=== PATIENT | female | born 1935 | race Caucasian/White ===

== ENCOUNTER 2020-03-17 21:13 | Inpatient (IN) ==
--- NOTE | 2020-03-17 21:31 | Emergency Department Note ---
Abdominal Pain HPI General Source: EMS Mode of arrival: EMS Limitations: other (Nonverbal. Not able to follow commands.) History of Present Illness HPI Narrative: 84-year-old nonverbal dementia patient from [facility] nursing home facility presents with constipation and reports of no bowel movement for 11 days. She has had poor appetite with last meal 2 days ago. Unclear if she has been taking liquids. COVID + on 03/03/20. COVID screen this week reported as negative. DNR/DNI. Related Data Previous Rx's Medication Instructions Recorded Customized wheelchair #1 ea 02/14/20 lorazepam 0.5 mg PO Q4HP PRN #12 tab 03/19/20 morphine 5 mg PO Q4H #20 ml 03/19/20 ondansetron HCl 4 mg PO Q6H PRN #50 ml 03/19/20 scopolamine base 1 patch TRANSDERMA Q3D PRN #1 each 03/19/20 Allergies Allergy/AdvReac Type Severity Reaction Status Date / Time No Known Drug Allergies Allergy Verified 03/18/20 07:08 Review of Systems ROS ROS Narrative: Narrative: PFSH Narrative Patient History Narrative: Narrative: Medical/Surgical/Family History All Active Problems Acute hypernatremia (Acute) Acute dehydration (Acute) COVID-19 virus detected (Acute) Contracture of joint of hand (Chronic) Thrush (Acute) Encounter for long-term (current) use of other high-risk medications (Acute) Weight loss (Acute) Insomnia (Chronic) Dementia (Chronic) [place] or callus (Chronic) Incontinence (Chronic) Thoracic back pain (Acute) Anemia (Chronic) Hyperlipidemia (Chronic) Hallucinations (Acute) Stroke (Chronic) Elevated parathyroid hormone (Acute) Encounter for long-term (current) use of other high-risk medications (Chronic) Sjogrens syndrome (Acute) Sedimentation rate elevation (Chronic) Rheumatoid arthritis (Acute) Osteoporosis (Acute) Osteoarthrosis (Chronic) 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 use of drug (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 pylori and she was treated. Colonoscopy = polyps/internal hemorrhoids. Small bowel PillCam did not reach stomach, Active bleeding in the prox mid jejunum. Push enteroscopy did not show bleeding Suspect bleeding related to aspirin erosions in the small bowel Aspirin on hold Anxiety disorder (Chronic) 03/28/17 stable on fluoxetine 40 mg 12/04/2018 stable on fluoxetine 40 mg, follow-up 3 months 04/02/19 PHQ 9=8. Continue fluoxetine and follow-up in 2 months 02/19/20 decrease fluoxetine 30mg for 2 weeks then 20mg, f/u 3 m Bunion (Resolved) 11/18/16 improved after seeing podiatry Callus of foot (Resolved) 11/18/16 improved after seeing podiatry Carpal tunnel syndrome (Chronic) Confusion (Resolved) 09/06/16 Mini-Mental exam . Plan to check lab work today and brain MRI. ? related to recent stress of older sister passing. Fluoxetine increased to 40mg. Home health ordered. 05/09/17 continue with in-home care to help remember medication, help with daily activities and meals, encouraged sister to contact in home care to arrange for more hours. I offered to help but she declined 06/27/17 deteriorated, request more hours from in-home care until she can be placed at [facility] Depression (Chronic 09/10/14) 04/02/2019 PHQ 9= 8. Continue fluoxetine and follow-up in 2 months 02/19/20 decrease fluoxetine 30mg for 2 weeks then 20mg, continue Remeron 15 at bedtime, f/u 3 months Dizziness (Resolved) orthostatic blood pressure stable, EKG normal. labs stable. Discussed differential with patient, encouraged her to increase fluids, sports drinks, change position slowly. 04/05/16 orthostatic stable, continue to encourage her to increase fluids and change position slowly, follow-up 2 months, sooner if needed for worsening symptoms 06/13/16 stable, reviewed the above with patient again 09/06/16 encouraged her to change position slowly, increase/maintaining hydration, orthostatics stable, check labs today, set up home health, add Flonase, follow-up one month 09/14/16 she is orthostatic today, hold on adding amlodipine, encouraged her to increase hydration, change her position slowly 11/18/16 stable, continue increased hydration and changing positions slowly Elevated parathyroid hormone (Acute) Encounter for long-term (current) use of other high-risk medications (Chronic) Encounter for long-term (current) use of other high-risk medications (Acute) Encounter for long-term current use of other high-risk medications (Resolved) Hallucinations (Acute) 06/27/17 new. stroke vs demenita vs infection vs metabolic abnormality, discussed differential with patient, obtain MRI, lab work and follow-up in one month, keep appointment with Dr. To 08/09/17 no acute findings on MRI of brain. Hallucinations related to meek ntia 12/04/2018 occurring as part of her dementia Hyperglycemia (Chronic) 02/19/19 A1C 6.2 discussed results of lab work, continue to monitor and recheck again in August 2019 Hyperlipidemia (Chronic) 02/19/2020 taking atorvastatin 10, plan to check lipids in early May Hypertension, essential (Chronic) 05/09/17 stable on losartan 100 mg and propanolol 20 mg twice a day. 08/29/18 deteriorated. Add diltiazem 60 twice daily, continue losartan 100 and metoprolol ER 25, check CMP in 1 week and record blood pressure daily, follow-up 1 month 02/19/2020 stable on diltiazem 60 BID, losartan 100, metoprolol ER 25, continue Incontinence (Chronic) 03/21/18 discussed strategies for improvement, [place] exercises, emptying bladder at least every 2 hours, discussed bladder irritants, discussed medications and surgery. 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 Abnormality consistent with small vessel ischemic change. Echocardiogram normal, started on Plavix 75 for one month, aspirin, Lipitor 40 mg. Recommendations to obtain CT head and neck angio. 09/13/[address] angio not performed yet, ordered today, scheduled 09/19/16. Continue Plavix, aspirin, Lipitor 10/07/16 discussed results of head/neck CT angio, refer to Dr. To, continue Plavix, aspirin and Lipitor 03/28/17 stable on Plavix and Lipitor follow-up with Dr. To as directed 06/20/2019 recent admission to [facility], encouraged to continue aspirin and Plavix, continue physical therapy left-sided weakness and soft surgical diet TIA (transient ischemic attack) (Chronic 09/10/12) URI (upper respiratory infection) (Resolved) Surgical History History of cataract surgery (Chronic) 06/2011;07/2011 X2 History of colonoscopy (Chronic) 2008 Dr. Hyde-Polyps, no cancer Family History Mother Amyotrophic lateral sclerosis Sister Rheumatoid arthritis Malignant neoplasm of breast Father Family history of throat cancer Unknown Osteoporosis Acute myocardial infarction siblings Family history of malignant neoplasm siblings Social History Smoking Status: Never smoker Alcohol Intake Frequency: does not drink Substance Use: does not use Exam Narrative Narrative: Narrative: General Limitations: other (Nonverbal. Not able to follow commands.) General appearance: Present cachectic, grimacing (With abdominal palpation exam), in no apparent distress and nontoxic Head Head: Present normocephalic and normal inspection Eye Eye: Present PERRL, EOMI and other (Pupils pinpoint) ENT ENT: Present mucous membranes dry Adbominal Abdominal: Present soft, tenderness (Grimaces with palpation) and normal bowel sounds Extremities Extremities: Present normal capillary refill and other (Flexion contractures of bilateral upper extremities and lower extremities) Neurological Neurological: Present CN II-XII intact Psychiatric Psychiatric: Present other (Nonverbal, not following commands) Skin Skin: Present warm (WNL), dry and normal color Course Course Course Narrative: Patient is seen for constipation and anorexia. Was COVID positive on 03/03/2020. Reevaluation(s) Reevaluation #1: Patient seen and examined. Initial work-up includes KUB, CBC with manual differential and Chem-8 panel will start an IV and give her normal saline 500 mL bolus. Patient is signed out to Dr. Anthony at change of shift. He will assume care. Vital Signs Vital signs: Vital Signs Temperature 98.0 F 03/17/20 21:15 Pulse Rate 96 H 03/17/20 21:15 Respiratory Rate 17 03/17/20 21:15 Blood Pressure 147/102 03/17/20 21:15 Pulse Oximetry (%) 92 03/17/20 21:15 Temperature 97.8 F 03/19/20 07:03 Pulse Rate 92 H 03/19/20 07:03 Respiratory Rate 14 03/19/20 07:03 Blood Pressure 113/81 03/19/20 07:03 Pulse Oximetry (%) 94 03/19/20 07:03 MDM MDM Narrative Medical decision making narrative: Narrative: Lab Data Result diagrams: 03/17/20 22:00 03/18/20 15:00 Labs: Lab Results 03/17/20 03/17/20 03/17/20 Range/Units 21:45 22:00 22:00 WBC 9.4 (4.50-11.00) K/mcL RBC 5.29 (3.59-5.38) M/mcL Hgb 16.0 H (11.2-15.7) g/dL Hct 49.7 H (34.1-44.9) % POC Hct 47.0 (36.0-48.0) % MCV 94.0 (80.0-100.0) fL MCH 30.2 (26.0-34.0) pg MCHC 32.2 (31.0-36.0) g/dL RDW 13.5 (11.5-14.5) % Plt Count 310 (140-440) K/mcL MPV 9.8 (7.4-10.4) fL Total Counted 100 Seg Neutrophils % 69 (38-78) % Band Neutrophils % Not Reportable Lymphocytes % 22 (15-49) % Monocytes % (Manual) 9 (1-12) % Platelet Estimate Normal (NORMAL) RBC Morphology Normal (NORMAL) POC Sodium 156 H (133-145) mmol/L Sodium 153 H (133-145) mmol/L POC Potassium 3.7 (3.3-5.1) mmol/L Potassium 3.9 (3.3-5.1) mmol/L POC Chloride 124 H (96-108) mmol/L Chloride 119 H (96-108) mmol/L Carbon Dioxide 17 L (22-30) mmol/L POC Total CO2 18 L (22-30) mmol/L Anion Gap 17.0 H (8-16) POC BUN 56 H (8-23) mg/dl BUN 64 H (8-23) mg/dl Creatinine 1.4 H (0.6-1.1) mg/dl POC Creatinine 1.4 H (0.6-1.1) mg/dl GFR Calculation 34 Glucose 154 H (70-105) mg/dL POC Glucose 151 H (70-105) mg/dL Calcium 9.3 (8.6-10.4) mg/dl POC WB Ioniz Calcium 1.16 (1.16-1.32) mmol/L Discharge Plan Patient/Caregiver Discharge Instructions Pt seen by LEGAL ADMINISTRATIVE ASSISTANT/PA only: No Clinical Impression: Acute hypernatremia, Acute dehydration, COVID-19 virus detected Dementia Qualifiers: Dementia type: unspecified type Dementia behavioral disturbance: without behavioral disturbance Qualified Code(s): F03.90 - Unspecified dementia without behavioral disturbance Patient Disposition: Xfer As Inpt ([facility]) Condition: Serious Discharge Date/Time: 03/18/20 00:47
[2020-03-17] MEDS ORDERED: 0.9 % SODIUM CHLORIDE 1,000 ML IV SCH ×2 (21:45→23:45)
[2020-03-17 22:08] LABS: POC Blood Urea Nitrogen 56 mg/dl (8-23); POC CO2 18 mmol/L (22-30); POC Calcium, Ionized 1.16 mmol/L (1.16-1.32); POC Chloride 124 mmol/L (96-108); POC Creatinine 1.4 mg/dl (0.6-1.1); POC Glucose, Random 151 mg/dL (70-105); POC Potassium 3.7 mmol/L (3.3-5.1); POC Sodium 156 mmol/L (133-145)
[2020-03-17] MEDS ORDERED: 0.9 % SODIUM CHLORIDE 1,000 ML IV ONE (22:22)
--- NOTE | 2020-03-17 22:22 | Emergency Department Note ---
Abdominal Pain HPI General Chief Complaint: Constipation Stated Complaint: constipation Time Seen by Provider: 03/17/20 21:26 Source: EMS Mode of arrival: EMS Limitations: other (Nonverbal. Not able to follow commands.) History of Present Illness HPI Narrative: 84-year-old female patient with dementia from [facility] comes in for constipation x11 days. She is nonverbal so I am unable to get any history or review of systems. Patient was initially seen by physicians perioperative assistant Kiah Palacios. Please see her note. I reviewed that note and agree with her evaluation management and documentation. I also reviewed paperwork from the nursing facility and discussed with my charge nurse who talked directly with the nursing staff there. Apparently she was tested for COVID and was positive on the (2 weeks ago) but subsequent testing was negative per nursing report Related Data Home Medications Medication Instructions Recorded Confirmed aspirin 81 mg chewable tablet 81 mg PO DAILY 04/17/18 03/17/20 ascorbic acid (vitamin C) 500 mg 500 mg PO QDAY 05/02/18 03/17/20 tablet ferrous gluconate 325 mg (37 mg 325 mg PO QDAY tab 05/02/18 03/17/20 iron) tablet acetaminophen 325 mg capsule 650 mg PO Q4H PRN 12/04/18 03/17/20 magnesium hydroxide 400 mg/5 mL See Rx Instructions PO QDAY PRN 12/04/18 03/17/20 oral suspension clopidogrel 75 mg tablet See Rx Instructions .ROUTE 04/02/19 03/17/20 .COMPLEX tablet diltiazem HCl 60 mg 60 mg PO BID cap 04/02/19 03/17/20 capsule,extended release 12 hr sodium phosphates 19 gram-7 118 ml ID ONCE 02/19/20 03/17/20 gram/118 mL enema bisacodyl [Dulcolax (bisacodyl)] 10 mg ID PRN PRN 03/17/20 03/17/20 cholecalciferol (vitamin D3) 5,000 unit PO DAILY 03/17/20 03/17/20 docusate sodium [Colace] 100 mg PO QDAY 03/17/20 03/17/20 fluoxetine 20 mg PO QDAY 03/17/20 03/17/20 Previous Rx's Medication Instructions Recorded losartan 100 mg tablet 100 mg PO QDAY #90 tab 12/22/17 atorvastatin 10 mg tablet 10 mg PO QDAY #30 tab 08/31/18 folic acid 1 mg tablet 1 mg PO QDAY #90 tab 07/24/19 metoprolol succinate 25 mg 25 mg PO QDAY #30 tab 08/08/19 tablet,extended release 24 hr mirtazapine 15 mg tablet 15 mg PO QHS #30 tab 10/15/19 methotrexate sodium 2.5 mg tablet 10 mg PO QWEEK #16 tab 11/27/19 denosumab 60 mg/mL subcutaneous 60 mg SUBCUT [id number] #1 ml 01/01/20 syringe Customized wheelchair #1 ea 02/14/20 Allergies Allergy/AdvReac Type Severity Reaction Status Date / Time No Known Drug Allergies Allergy Verified 02/19/20 10:10 Review of Systems ROS ROS Narrative: Narrative: Limitations: ROS unobtainable due to patients medical condition PFS Narrative Patient History Narrative: Narrative: Medical/Surgical/Family History All Active Problems Acute hypernatremia (Acute) Acute dehydration (Acute) COVID-19 virus detected (Acute) Contracture of joint of hand (Chronic) Thrush (Acute) Encounter for long-term (current) use of other high-risk medications (Acute) Weight loss (Acute) Insomnia (Chronic) Dementia (Chronic) [place] or callus (Chronic) Incontinence (Chronic) Thoracic back pain (Acute) Anemia (Chronic) Hyperlipidemia (Chronic) Hallucinations (Acute) Stroke (Chronic) Elevated parathyroid hormone (Acute) Encounter for long-term (current) use of other high-risk medications (Chronic) Sjogrens syndrome (Acute) Sedimentation rate elevation (Chronic) Rheumatoid arthritis (Acute) Osteoporosis (Acute) Osteoarthrosis (Chronic) 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 pylori and she was treated. Colonoscopy = polyps/internal hemorrhoids. Small bowel PillCam did not reach stomach, Active bleeding in the prox mid jejunum. Push enteroscopy did not show bleeding Suspect bleeding related to aspirin erosions in the small bowel Aspirin on hold Anxiety disorder (Chronic) 03/28/17 stable on fluoxetine 40 mg 12/04/2018 stable on fluoxetine 40 mg, follow-up 3 months 04/02/19 PHQ 9=8. Continue fluoxetine and follow-up in 2 months 02/19/20 decrease fluoxetine 30mg for 2 weeks then 20mg, f/u 3 m Bunion (Resolved) 11/18/16 improved after seeing podiatry Callus of foot (Resolved) 11/18/16 improved after seeing podiatry Carpal tunnel syndrome (Chronic) Confusion (Resolved) 09/06/16 Mini-Mental exam 27/30. Plan to check lab work today and brain MRI. ? related to recent stress of older sister passing. Fluoxetine increased to 40mg. Home health ordered. 05/09/17 continue with in-home care to help remember medication, help with daily activities and meals, encouraged sister to contact in home care to arrange for more hours. I offered to help but she declined 06/27/17 deteriorated, request more hours from in-home care until she can be placed at [place] Depression (Chronic 09/10/14) 04/02/2019 PHQ 9= 8. Continue fluoxetine and follow-up in 2 months 02/19/20 decrease fluoxetine 30mg for 2 weeks then 20mg, continue Remeron 15 at bedtime, f/u 3 months Dizziness (Resolved) orthostatic blood pressure stable, EKG normal. labs stable. Discussed differential with patient, encouraged her to increase fluids, sports drinks, change position slowly. 04/05/16 orthostatic stable, continue to encourage her to increase fluids and change position slowly, follow-up 2 months, sooner if needed for worsening symptoms 06/13/16 stable, reviewed the above with patient again 09/06/16 encouraged her to change position slowly, increase/maintaining hydration, orthostatics stable, check labs today, set up home health, add Jony nase, follow-up one month 09/14/16 she is orthostatic today, hold on adding amlodipine, encouraged her to increase hydration, change her position slowly 11/18/16 stable, continue increased hydration and changing positions slowly Elevated parathyroid hormone (Acute) Encounter for long-term (current) use of other high-risk medications (Chronic) Encounter for long-term (current) use of other high-risk medications (Acute) Encounter for long-term current use of other high-risk medications (Resolved) Hallucinations (Acute) 06/27/17 new. stroke vs demenita vs infection vs metabolic abnormality, discuss ed differential with patient, obtain MRI, lab work and follow-up in one month, keep appointment with Dr. To 08/09/17 no acute findings on MRI of brain. Hallucinations related to dementia 12/04/2018 occurring as part of her dementia Hyperglycemia (Chronic) 02/19/19 A1C 6.2 discussed results of lab work, continue to monitor and recheck again in August 2019 Hyperlipidemia (Chronic) 02/19/2020 taking atorvastatin 10, plan to check lipids in early May Hypertension, essential (Chronic) 05/09/17 stable on losartan 100 mg and propanolol 20 mg twice a day. 08/29/18 deteriorated. Add diltiazem 60 twice daily, continue losartan 100 and metoprolol ER 25, check CMP in 1 week and record blood pressure daily, follow-up 1 month 02/19/2020 stable on diltiazem 60 BID, losartan 100, metoprolol ER 25, continue Incontinence (Chronic) 03/21/18 discussed strategies for improvement, [place] exercises, emptying bladder at least every 2 hours, discussed bladder irritants, discussed medications and surgery. 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 Abnormality consistent with small vessel ischemic change. Echocardiogram normal, started on Plavix 75 for one month, aspirin, Lipitor 40 mg. Recommendations to obtain CT head and neck angio. 09/13/[address] angio not performed yet, ordered today, scheduled 09/19/16. Continue Plavix, aspirin, Lipitor 10/07/16 discussed results of head/neck CT angio, refer to Dr. To, continue Plavix, aspirin and Lipitor 03/28/17 stable on Plavix and Lipitor follow-up with Dr. To as directed 06/20/2019 recent admission to [facility], encouraged to continue aspirin and Plavix, continue physical therapy left-sided weakness and soft surgical diet TIA (transient ischemic attack) (Chronic 09/10/12) URI (upper respiratory infection) (Resolved) Surgical History History of cataract surgery (Chronic) 06/2011;07/2011 X2 History of colonoscopy (Chronic) 2008 Dr. Hyde-Polyps, no cancer Family History Mother Amyotrophic lateral sclerosis Sister Rheumatoid arthritis Malignant neoplasm of breast Father Family history of throat cancer Unknown Osteoporosis Acute myocardial infarction siblings Family history of malignant neoplasm siblings Social History Smoking Status: Never smoker Alcohol Intake Frequency: does not drink Substance Use: does not use Exam Narrative Narrative: Narrative: General Limitations: other (Nonverbal. Not able to follow commands.) Course Vital Signs Vital signs: Vital Signs Temperature 98.0 F 03/17/20 21:15 Pulse Rate 96 H 03/17/20 21:15 Respiratory Rate 17 03/17/20 21:15 Blood Pressure 147/102 03/17/20 21:15 Pulse Oximetry (%) 92 03/17/20 21:15 Temperature 97.4 F 03/18/20 01:03 Pulse Rate 87 03/18/20 01:03 Respiratory Rate 16 03/18/20 01:03 Blood Pressure 125/84 03/18/20 01:03 Pulse Oximetry (%) 91 03/18/20 01:03 [facility] MDM Narrative Medical decision making narrative: Narrative: Initial laboratory showed signi ficant hyponatremia with a sodium of 156. Increased fluid for single liter bolus. Suspect severe dehydration secondary to decreased intake. Likely constipation secondary to that. X-ray of the abdomen is unrevealing. It is noted she is DNR/DNI. We will repeat COVID testing as she will need to come in the hospital After getting her labs back except for the COVID, I discussed the case with Dr. Fowler, our hospitalist. He agreed to accept the patient for further care and evaluation in the hospital. He recommended we continue IV fluids at a slower rate after getting initial bolus. I will write transition orders for her he will see her later in the morning. Ordered serial labs per his recommendation. COVID testing came back positive. At this time she is not having fever cough or congestion-she is likely recovering from this but we will continue to take precautions Lab Data Lab results reviewed: Yes I reviewed the patient's lab results. Result diagrams: 03/17/20 22:00 03/17/20 21:45 Labs: Lab Results 03/17/20 03/17/20 03/17/20 Range/Units 21:45 22:00 22:00 WBC 9.4 (4.50-11.00) K/mcL RBC 5.29 (3.59-5.38) M/mcL Hgb 16.0 H (11.2-15.7) g/dL Hct 49.7 H (34.1-44.9) % POC Hct 47.0 (36.0-48.0) % MCV 94.0 (80.0-100.0) fL MCH 30.2 (26.0-34.0) pg MCHC 32.2 (31.0-36.0) g/dL RDW 13.5 (11.5-14.5) % Plt Count 310 (140-440) K/mcL MPV 9.8 (7.4-10.4) fL Total Counted 100 Seg Neutrophils % 69 (38-78) % Band Neutrophils % Not Reportable Lymphocytes % 22 (15-49) % Monocytes % (Manual) 9 (1-12) % Platelet Estimate Normal (NORMAL) RBC Morphology Normal (NORMAL) POC Sodium 156 H (133-145) mmol/L Sodium 153 H (133-145) mmol/L POC Potassium 3.7 (3.3-5.1) mmol/L Potassium 3.9 (3.3-5.1) mmol/L POC Chloride 124 H (96-108) mmol/L Chloride 119 H (96-108) mmol/L Carbon Dioxide 17 L (22-30) mmol/L POC Total CO2 18 L (22-30) mmol/L Anion Gap 17.0 H (8-16) POC BUN 56 H (8-23) mg/dl BUN 64 H (8-23) mg/dl Creatinine 1.4 H (0.6-1.1) mg/dl POC Creatinine 1.4 H (0.6-1.1) mg/dl GFR Calculation 34 Glucose 154 H (70-105) mg/dL POC Glucose 151 H (70-105) mg/dL Calcium 9.3 (8.6-10.4) mg/dl POC WB Ioniz Calcium 1.16 (1.16-1.32) mmol/L Radiology Data Radiology results reviewed: Yes I reviewed the patient's radiology results. Radiology results narrative: X-ray of the abdomen shows gas but no free air or air-fluid levels. Nonspecific Discharge Plan Patient/Caregiver Discharge Instructions Pt seen by SHOPPER'S AIDE/PA only: No Clinical Impression: Acute hypernatremia, Acute dehydration, COVID-19 virus detected Dementia Qualifiers: Dementia type: unspecified type Dementia behavioral disturbance: without behavioral disturbance Qualified Code(s): F03.90 - Unspecified dementia without behavioral disturbance Patient Disposition: Xfer As Inpt ([facility]) Condition: Serious Discharge Date/Time: 03/18/20 00:47
[2020-03-17 22:46] LABS: Hematocrit 49.7 % (34.1-44.9); Mean Corpuscular HGB Conc 32.2 g/dL (31.0-36.0); Mean Platelet Volume 9.8 fL (7.4-10.4); Platelet Count 310 K/mcL (140-440); RBC 5.29 M/mcL (3.59-5.38); Red Cell Distribution Width 13.5 % (11.5-14.5); WBC 9.4 K/mcL (4.50-11.00)
[2020-03-17 23:14] LABS: Lymphocytes % 22 % (15-49); Monocytes % (Manual) 9 % (1-12); Platelet Estimate NORMAL (NORMAL); RBC Morphology NORMAL (NORMAL); Segmented Neutrophils % 69 % (38-78)
[2020-03-18 00:08] LABS: Blood Urea Nitrogen 64 mg/dl (8-23); Calcium 9.3 mg/dl (8.6-10.4); Carbon Dioxide 17 mmol/L (22-30); Chloride 119 mmol/L (96-108); Glucose 154 mg/dL (70-105)
[2020-03-18 00:18] LABS: Glomerular Filtration Rate 34
--- NOTE | 2020-03-18 03:46 | XRay Report ---
CLINICAL INFORMATION: Constipation COMPARISON: 04/14/2018 FINDINGS: The stool gas pattern is unremarkable. There is no free air, soft tissue mass, or organomegaly. Multiple stones packing the gallbladder and the right upper quadrant IMPRESSION: Cholelithiasis Interpreted and Authenticated by: Mehran Rhodes 03/18/20
[2020-03-18] MEDS ORDERED: PROCHLORPERAZINE 10 MG/2 ML VIAL IV PRN (08:23)
[2020-03-18] MEDS ORDERED: 0.9 % SODIUM CHLORIDE 1,000 ML IV SCH (08:30)
[2020-03-18] MEDS ORDERED: FLEETS ADULT ENEMA PR PRN (08:53)
[2020-03-18] MEDS ORDERED: HEPARIN 5,000 UNIT/ML VIAL SQ SCH (09:00)
[2020-03-18] MEDS ORDERED: ASPIRIN 81 MG TAB.CHEW PO SCH (09:00)
[2020-03-18] MEDS ORDERED: CLOPIDOGREL 75 MG TABLET PO SCH (09:00)
[2020-03-18] MEDS ORDERED: FLUoxetine HCL 20 MG CAPSULE PO SCH (09:00)
[2020-03-18] MEDS ORDERED: FERROUS GLUCONATE 324 MG TABLET PO SCH (09:00)
[2020-03-18] MEDS ORDERED: DOCUSATE SODIUM 100 MG CAPSULE PO SCH (09:00)
[2020-03-18] MEDS ORDERED: FOLIC ACID 1 MG TABLET PO SCH (09:00)
[2020-03-18] MEDS ORDERED: ATORVASTATIN 10 MG TABLET PO SCH (09:00)
[2020-03-18 09:45] LABS: proBNP 296.7 pg/ml (0-450)
--- NOTE | 2020-03-18 10:10 | Internal Med History&Physical ---
HPI History of Present Illness Patient information: Note initiated : 03/18/20 at 10:01 am Service Date, if different from initiated Date: [] Patient: Yaa Cox 84 y/o F admitted on 03/18/20 for constipation. Chief Complaint: [] History of present illness: Ms. Cox is a 84 year old F with a past medical history dementia, high blood pressure, history of Sjogren's syndrome and rheumatoid arthritis who was sent to the ER from [facility] due to severe constipation. Patient is nonverbal and all history is obtained from her chart and the ER physician Dr. Anthony. Patient has not had a bowel movement for 11 days. She had a positive COVID-19 test on March 03 but repeat one last week was negative. In the ER, repeat COVID-19 test was positive again. She was also found to have hypernatremia, 156. 1 L normal saline was given in the ER. When I saw this patient, other than the symptoms mentioned above, patient seems to be fine. Review of Systems ROS unobtainable: due to mental status PFSH PFSH All Active Problems Acute hypernatremia (Acute) Acute dehydration (Acute) COVID-19 virus detected (Acute) Contracture of joint of hand (Chronic) Thrush (Acute) Encounter for long-term (current) use of other high-risk medications (Acute) Weight loss (Acute) Insomnia (Chronic) Dementia (Chronic) [place] or callus (Chronic) Incontinence (Chronic) Thoracic back pain (Acute) Anemia (Chronic) Hyperlipidemia (Chronic) Hallucinations (Acute) Stroke (Chronic) Elevated parathyroid hormone (Acute) Encounter for long-term (current) use of other high-risk medications (Chronic) Sjogrens syndrome (Acute) Sedimentation rate elevation (Chronic) Rheumatoid arthritis (Acute) Osteoporosis (Acute) Osteoarthrosis (Chronic) 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 pylori and she was treated. Colonoscopy = polyps/internal hemorrhoids. Small bowel PillCam did not reach stomach, Active bleeding in the prox mid jejunum. Push enteroscopy did not show bleeding Suspect bleeding related to aspirin erosions in the small bowel Aspirin on hold Anxiety disorder (Chronic) 03/28/17 stable on fluoxetine 40 mg 12/04/2018 stable on fluoxetine 40 mg, follow-up 3 months 04/02/19 PHQ 9=8. Continue fluoxetine and follow-up in 2 months 02/19/20 decrease fluoxetine 30mg for 2 weeks then 20mg, f/u 3 m Bunion (Resolved) 11/18/16 improved after seeing podiatry Callus of foot (Resolved) 11/18/16 improved after seeing podiatry Carpal tunnel syndrome (Chronic) Confusion (Resolved) 09/06/16 Mini-Mental exam 27/30. Plan to check lab work today and brain MRI. ? related to recent stress of older sister passing. Fluoxetine increased to 40mg. Home health ordered. 05/09/17 continue with in-home care to help remember medication, help with daily activities and meals, encouraged sister to contact in home care to arrange for more hours. I offered to help but she declined 06/27/17 deteriorated, request more hours from in-home care until she can be placed at [place] Depression (Chronic 09/10/14) 04/02/2019 PHQ 9= 8. Continue fluoxetine and follow-up in 2 months 02/19/20 decrease fluoxetine 30mg for 2 weeks then 20mg, continue Remeron 15 at bedtime, f/u 3 months Dizziness (Resolved) orthostatic blood pressure stable, EKG normal. labs stable. Discussed differential with patient, encouraged her to increase fluids, sports drinks, change position slowly. 04/05/16 orthostatic stable, continue to encourage her to increase fluids and change position slowly, follow-up 2 months, sooner if needed for worsening symptoms 06/13/16 stable, reviewed the above with patient again 09/06/16 encouraged her to change position slowly, increase/maintaining hydration, orthostatics stable, check labs today, set up home health, add Flonase, follow-up one month 09/14/16 she is orthostatic today, hold on adding amlodipine, encouraged her to increase hydration, change her position slowly 11/18/16 stable, continue increased hydration and changing positions slowly Elevated parathyroid hormone (Acute) Encounter for long-term (current) use of other high-risk medications (Chronic) Encounter for long-term (current) use of other high-risk medications (Acute) Encounter for long-term current use of other high-risk medications (Resolved) Hallucinations (Acute) 06/27/17 new. stroke vs demenita vs infection vs metabolic abnormality, discussed differential with patient, obtain MRI, lab work and follow-up in one month, keep appointment with Dr. To 08/09/17 no acute findings on MRI of brain. Hallucinations related to dementia 12/04/2018 occurring as part of her dementia Hyperglycemia (Chronic) 02/19/19 A1C 6.2 discussed results of lab work, continue to monitor and recheck again in August 2019 Hyperlipidemia (Chronic) 02/19/2020 taking atorvastatin 10, plan to check lipids in early May Hypertension, essential (Chronic) 05/09/17 stable on losartan 100 mg and propanolol 20 mg twice a day. 08/29/18 deteriorated. Add diltiazem 60 twice daily, continue losartan 100 and metoprolol ER 25, check CMP in 1 week and record blood pressure daily, follow-up 1 month 02/19/2020 stable on diltiazem 60 BID, losartan 100, metoprolol ER 25, continue Incontinence (Chronic) 03/21/18 discussed strategies for improvement, [place] exercises, emptying bladder at least every 2 hours, discussed bladder irritants, discussed medications and surgery. 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 Abnormality consistent with small vessel ischemic change. Echocardiogram normal, started on Plavix 75 for one month, aspirin, Lipitor 40 mg. Recommendations to obtain CT head and neck angio. 09/13/[address] angio not performed yet, ordered today, scheduled 09/19/16. Continue Plavix, aspirin, Lipitor 10/07/16 discussed results of head/neck CT angio, refer to Dr. To, continue Plavix, aspirin and Lipitor 03/28/17 stable on Plavix and Lipitor follow-up with Dr. To as directed 06/20/2019 recent admission to [facility], encouraged to continue aspirin and Plavix, continue physical therapy left-sided weakness and soft surgical diet TIA (transient ischemic attack) (Chronic 09/10/12) URI (upper respiratory infection) (Resolved) Surgical History History of cataract surgery (Chronic) 06/2011;07/2011 X2 History of colonoscopy (Chronic) 2008 Dr. Hyde-Polyps, no cancer Family History Mother Amyotrophic lateral sclerosis Sister Rheumatoid arthritis Malignant neoplasm of breast Father Family history of throat cancer Unknown Osteoporosis Acute myocardial infarction siblings Family history of malignant neoplasm siblings Social History adopted: No caregiver/support person: No foster care: No household members: alone housing: apartment lives independently: Yes marital status: single education level: high school service: No fci: No occupational status: retired pets and animals: Yes pets and animals: cat(s) hx recent travel: No sexually active: No frequency: 1-2 times per week smoking status: Unknown if ever smoked alcohol intake frequency: does not drink substance use type: does not use MEDS/ALLERGIES Home Medications and Allergies Home Medications Medication Instructions Recorded Confirmed Type losartan 100 mg tablet 100 mg PO QDAY #90 tab 12/22/17 03/18/20 Rx aspirin 81 mg chewable tablet 81 mg PO DAILY 04/17/18 03/18/20 History ascorbic acid (vitamin C) 500 mg 500 mg PO QDAY 05/02/18 03/18/20 History tablet ferrous gluconate 325 mg (37 mg 325 mg PO QDAY tab 05/02/18 03/18/20 History iron) tablet atorvastatin 10 mg tablet 10 mg PO QDAY #30 tab 08/31/18 03/18/20 Rx acetaminophen 325 mg capsule 650 mg PO Q4H PRN 12/04/18 03/18/20 History magnesium hydroxide 400 mg/5 mL 30 ml PO PRN PRN 12/04/18 03/18/20 History oral suspension clopidogrel 75 mg tablet See Rx Instructions .ROUTE 04/02/19 03/18/20 History .COMPLEX tablet diltiazem HCl 60 mg 60 mg PO BID cap 04/02/19 03/18/20 History capsule,extended release 12 hr folic acid 1 mg tablet 1 mg PO QDAY #90 tab 07/24/19 03/18/20 Rx mirtazapine 15 mg tablet 15 mg PO QHS #30 tab 10/15/19 03/18/20 Rx methotrexate sodium 2.5 mg tablet 10 mg PO QWEEK #16 tab 11/27/19 03/18/20 Rx Customized wheelchair #1 ea 02/14/20 03/18/20 Rx sodium phosphates 19 gram-7 118 ml TX PRN PRN 02/19/20 03/18/20 History gram/118 mL enema bisacodyl [Dulcolax (bisacodyl)] 10 mg TX PRN PRN 03/17/20 03/18/20 History cholecalciferol (vitamin D3) 5,000 unit PO DAILY 03/17/20 03/18/20 History docusate sodium [Colace] 100 mg PO QHS 03/17/20 03/18/20 History fluoxetine 20 mg PO QDAY 03/17/20 03/18/20 History metoprolol succinate 25 mg PO QHS 03/18/20 03/18/20 History Allergies Allergy/AdvReac Type Severity Reaction Status Date / Time No Known Drug Allergies Allergy Verified 03/18/20 07:08 EXAM Constitutional Vitals: Temp Pulse Resp BP Pulse Ox 97.6 F 79 18 143/92 93 03/18/20 08:00 03/18/20 08:00 03/18/20 08:00 03/18/20 08:00 03/18/20 08:23 Additional findings Additional findings: General - nonverbal, does not follow commands, thin, no acute distress Eyes - No conjunctival injection ENT no rhinorrhea, no redness or rash around throat or on face Neck no JVD, no thyromegaly Respiratory: Lungs -clear, no wheezing or crackles. Cardiovascular - RRR no m/r/g, GI - Normal bowel sounds, no distended, soft. Extremeties - No edema, cyanosis or clubbing. Left wrist deformed. Hemo/lymphatic/immune no lymphadenopathy Neurological Alert, nonverbal, does not follow commands. Psychiatry nonverbal DATA Data Completed and Pending Labs: Labs from last 24 hours 03/18/20 03/18/20 03/17/20 08:51 08:51 22:00 WBC RBC Hgb Hct POC Hct 47.0 MCV MCH MCHC RDW Plt Count MPV Total Counted Seg Neutrophils % Band Neutrophils % Lymphocytes % Monocytes % (Manual) Platelet Estimate RBC Morphology POC Sodium 156 H Sodium Pending POC Potassium 3.7 Potassium Pending POC Chloride 124 H Chloride Pending Carbon Dioxide Pending POC Total CO2 18 L Anion Gap Pending POC BUN 56 H BUN Pending Creatinine Pending POC Creatinine 1.4 H GFR Calculation Pending Glucose Pending POC Glucose 151 H Calcium Pending POC WB Ioniz Calcium 1.16 NT-Pro-B Natriuret Pep 296.7 03/17/20 03/17/20 22:00 21:45 WBC 9.4 RBC 5.29 Hgb 16.0 H Hct 49.7 H POC Hct MCV 94.0 MCH 30.2 MCHC 32.2 RDW 13.5 Plt Count 310 MPV 9.8 Total Counted 100 Seg Neutrophils % 69 Band Neutrophils % Not Reportable Lymphocytes % 22 Monocytes % (Manual) 9 Platelet Estimate Normal RBC Morphology Normal POC Sodium Sodium 153 H POC Potassium Potassium 3.9 POC Chloride Chloride 119 H Carbon Dioxide 17 L POC Total CO2 Anion Gap 17.0 H POC BUN BUN 64 H Creatinine 1.4 H POC Creatinine GFR Calculation 34 Glucose 154 H POC Glucose Calcium 9.3 POC WB Ioniz Calcium NT-Pro-B Natriuret Pep A/P Narrative A/P Narrative: 1. Hypernatremia Sodium 156 in the ER 1 L normal saline was given in the ER Continue IV normal saline for dehydration and then I would like to start a half normal saline BMP every 6 hours 2. PRANAY, creatinine 0.9 on 08/21/19 Urine sodium and creatinine Intake and output Avoid nephrotoxic meds Losartanl is on hold Repeat renal function in the morning 3. Constipation XR abd - moderate amount of fecal matter in the left colon (spoke to radiology Dr. Machuca) Continue sennosides, docusate, fleet enema 4. Covid 19 positive positive COVID-19 test on March 03 but repeat one last week was negative. In the ER, repeat COVID-19 test was positive CXR on I would not like to start her on remdesivir and steroid Covid precausion 5. Dehydration IVF 6. Dementia continue home med 7. Hx of Sjogrens syndrom/rheumatoid arthritis Continue methotrexate 8. HTN Continue diltiazem 60 mg twice daily, metoprolol 25 mg daily. Losartan is on hold Monitor blood pressure 9. Malnutrition, severe Education Technician consult 10. DVT prophylaxis: Heparin 11. CODE STATUS: DNR/DNI from her chart. Time Spent With Patient Time: Total time spent is greater than 50% in coordination of care (as doc umented) at patient's floor/unit and/or counseling patient:
--- NOTE | 2020-03-18 10:52 | XRay Report ---
CLINICAL INFORMATION: covid positive COMPARISON: 05/02/2018 FINDINGS: Mild cardiomegaly is accentuated by leftward rotation. Mediastinum and pulmonary vessels are normal. There is mild bibasilar airspace disease which may represent infiltrate. No effusion IMPRESSION: Mild bibasilar airspace disease infiltrate versus atelectasis. Interpreted and Authenticated by: Mehran Rhodes 03/18/20
[2020-03-18 11:04] LABS: Calcium 8.6 mg/dl (8.6-10.4); Carbon Dioxide 15 mmol/L (22-30); Glucose 126 mg/dL (70-105)
[2020-03-18 11:09] LABS: Blood Urea Nitrogen 50 mg/dl (8-23); Chloride 125 mmol/L (96-108); Glomerular Filtration Rate 52
[2020-03-18] MEDS: 0.9 % SODIUM CHLORIDE 10 ML SYRINGE IV SCH ×2 (14:02→22:52)
[2020-03-18] MEDS ORDERED: morphine 2 MG/ML VIAL IV PRN (15:17)
[2020-03-18] MEDS ORDERED: LORazepam 2 MG/ML VIAL IV PRN (15:17)
[2020-03-18] MEDS ORDERED: ONDANSETRON 4 MG/2 ML VIAL IV PRN (15:17)
--- NOTE | 2020-03-18 15:27 | Event Note ---
Event Note Event Note: Advanced Care Planning Documents: Pt's decisional Capacity: No POLST form completed: Not. RN Yasmin and I spoke to sister Soto, Cyn ([phone] POA) by phone this afternoon. I updated and explained Ms Yaa Cox' condition and treatment options. Cyn would like to pursue comfort care only for Yaa. No blood or other tests. No medications which are not related to comfort care only. Cyn would like to start comfort care only now.
[2020-03-18] MEDS ORDERED: SCOPOLAMINE 1 PATCH PATCH TOPICAL SCH (15:30)
[2020-03-18 18:47] LABS: Blood Urea Nitrogen 45 mg/dl (8-23); Calcium 8.1 mg/dl (8.6-10.4); Carbon Dioxide 16 mmol/L (22-30); Glomerular Filtration Rate 59; Glucose 119 mg/dL (70-105)
[2020-03-18 18:49] LABS: Chloride 126 mmol/L (96-108)
[2020-03-18] MEDS ORDERED: SENNOSIDES 1 TABLET PO SCH (21:00)
[2020-03-18] MEDS ORDERED: MIRTAZAPINE 15 MG TABLET PO SCH (21:00)
[2020-03-18] MEDS ORDERED: DILTIAZEM 60 MG PO SCH (21:00)
[2020-03-18] MEDS ORDERED: METOPROLOL SUCCINATE 25 MG TAB.XL.24H PO SCH (21:00)
[2020-03-19] MEDS: 0.9 % SODIUM CHLORIDE 10 ML SYRINGE IV SCH (05:10)
[2020-03-19] MEDS ORDERED: METHOTREXATE SODIUM 2.5 MG TABLET PO SCH (08:00)
--- NOTE | 2020-03-19 11:36 | Discharge Summary ---
Discharge Provider Provider Patient information: Note initiated : 03/19/20 at 11:34 am Service Date, if different from initiated Date: [] Patient: Yaa Cox 84 y/o F admitted on 03/18/20 for constipation. Chief Complaint: [] Date of admission: 03/18/20 00:47 Discharge date: 03/19/20 Primary care physician: BRITNEY Lucero Consults: 03/17/20 Consult to Physician [CONS] Stat Comment: Consulting Provider: Daniel Fowler Reason For Exam: Physician to Consult Discharge Meds Discharge Medications Home Medications Customized wheelchair #1 ea 02/14/20 [Rx Confirmed 03/18/20 Last Taken Unknown] lorazepam 0.5 mg PO Q4HP PRN #12 tab 03/19/20 [Rx Last Taken Unknown] morphine 5 mg PO Q4H #20 ml 03/19/20 [Rx Last Taken Unknown] ondansetron HCl 4 mg PO Q6H PRN #50 ml 03/19/20 [Rx Last Taken Unknown] scopolamine base 1 patch TRANSDERMA Q3D PRN #1 each 03/19/20 [Rx Last Taken Unknown] COURSE Hospital Course Hospital course: 1. Hypernatremia 2. PRANAY, creatinine 0.9 on 08/21/19 3. Constipation 4. Covid 19 positive 5. Dehydration 6. Dementia 7. Hx of Sjogrens syndrom/rheumatoid arthritis 8. HTN 9. Malnutrition, severe She is now on comfort care only. 03/17 family (sister) would like to pursue comfort care only which started immdiately today. 03/18 Pt is on comfort care. She will be dicharged to facility to continue comfort care. She needs to be quarantined. Call PCP and hospice team for medical issues. Discharge diagnosis: Hypernatremia, covid 19 positive. Time Spent with Patient Time attestation: Total time spent providing and/or coordinating discharge services: EXAM Constitutional Vitals: Temp Pulse Resp BP Pulse Ox 97.8 F 92 H 14 113/81 94 03/19/20 07:03 03/19/20 07:03 03/19/20 07:03 03/19/20 07:03 03/19/20 07:03 Additional findings Additional findings: General - nonverbal, does not follow commands, thin, no acute distress Eyes - No conjunctival injection ENT no rhinorrhea, no redness or rash around throat or on face Neck no JVD, no thyromegaly Respiratory: Lungs -clear, no wheezing or crackles. Cardiovascular - RRR no m/r/g, GI - Normal bowel sounds, no distended, soft. Extremeties - No edema, cyanosis or clubbing. Left wrist deformed. Hemo/lymphatic/immune no lymphadenopathy Neurological Alert, nonverbal, does not follow commands. Psychiatry nonverbal Discharge Data Data Completed and Pending Labs on day of discharge: Labs from last 24 hours 03/18/20 03/18/20 15:00 14:14 Sodium 156 H Potassium 3.8 Chloride 126 H Carbon Dioxide 16 L Anion Gap 14.0 BUN 45 H Creatinine 0.9 GFR Calculation 59 Glucose 119 H Calcium 8.1 L Troponin T < 0.01 Discharge Plan Patient/Caregiver Discharge Instructions Activity Restrictions/Additional Instructions: She needs to be quarantined. Prescriptions: New morphine 10 mg/5 mL solution 5 mg PO Q4H Qty: 20 RF: 0 lorazepam 0.5 mg tablet 0.5 mg PO Q4HP PRN (Reason: anxiety) Qty: 12 RF: 0 ondansetron HCl 4 mg/5 mL solution 4 mg PO Q6H PRN (Reason: nausea and vomiting) Qty: 50 RF: 0 scopolamine base 1 mg over 3 days patch 3 day 1 patch TRANSDERMA Q3D PRN (Reason: nausea and vomiting) Qty: 1 RF: 0 Discontinued losartan 100 mg tablet 100 mg PO QDAY Qty: 90 RF: 3 atorvastatin 10 mg tablet 10 mg tablet 10 mg PO QDAY Qty: 30 RF: 2 folic acid 1 mg tablet 1 mg PO QDAY Qty: 90 RF: 4 ascorbic acid (vitamin C) 500 mg tablet 500 mg PO QDAY RF: 0 ferrous gluconate 325 mg (37 mg iron) tablet 325 mg (37 mg iron) tablet 325 mg PO QDAY RF: 0 magnesium hydroxide [Milk of Magnesia] 400 mg/5 mL suspension 30 ml PO PRN PRN (Reason: Constipation) RF: 0 acetaminophen 325 mg capsule 650 mg PO Q4H PRN (Reason: pain or fever) RF: 0 clopidogrel 75 mg tablet See Rx Instructions .ROUTE .COMPLEX RF: 0 diltiazem HCl 60 mg capsule,extended release 12 hr 60 mg PO BID RF: 0 mirtazapine [Remeron] 15 mg tablet 15 mg PO QHS Qty: 30 RF: 2 Fleet Enema 19-7 gram/118 mL enema 118 ml MI PRN PRN (Reason: Constipation) RF: 0 methotrexate sodium 2.5 mg tablet 10 mg PO QWEEK Qty: 16 RF: 3 aspirin 81 MG tablet,chewable 81 mg PO DAILY RF: 0 Hold Instructions: spoke with JK, hold and reassess hgb in 1 month bisacodyl [Dulcolax (bisacodyl)] 10 mg Suppository 10 mg MI PRN PRN (Reason: Constipation) RF: 0 docusate sodium [Colace] 100 mg Capsule 100 mg PO QHS RF: 0 fluoxetine 10 mg tablet 20 mg PO QDAY RF: 0 cholecalciferol (vitamin D3) 50,000 unit capsule 5,000 unit PO DAILY RF: 0 metoprolol succinate 25 mg tablet extended release 24 hr 25 mg PO QHS RF: 0 No Action (DME) Customized wheelchair Qty: 1 RF: 0 Follow Up Plan Follow up with: Unknown [Outside] (Follow with PCP or hospice team as needed.) Kelly Villafuerte ARNP [Primary Care Provider] - Patient Disposition: Xfer SNF Prognosis: Serious Discharge Orders: Discharge Order (Routine); Ordered 03/19/20 Ordered By: Daniel Fowler
== END 2020-03-19 14:40 | DRG 640 ==
LOC: ED 21:13 → MEDSUR 03-18 00:47
PROVIDERS: ADMIT Internal Medicine; ATTEND Internal Medicine